=== PATIENT | female | born 1970 | race Caucasian/White ===

== ENCOUNTER 2020-03-06 11:42 | Emergency (ER) | payer BC ==
[~2020-03-06] VITALS: Ht 154.9 cm; Wt 66.2 kg
[2020-03-06 11:54] VITALS: Ht 154.9 cm; Wt 66.2 kg
[2020-03-06 12:23] LABS: BASOPHIL % 0.9 % (0-2); PLATELET COUNT 331 x10^3mcL (130-400)
[2020-03-06 12:47] LABS: ALBUMIN 3.8 g/dL (3.4-5.0); ALKALINE PHOSPHATASE 62 U/L (46-116); ALT/SGPT 57 U/L (14-59); AST/SGOT 36 U/L (15-37); BILIRUBIN TOTAL 0.4 mg/dL (0.20-1.00); CALCIUM 8.3 mg/dL (8.5-10.1); CARBON DIOXIDE 33.3 mmol/L (21-32); CHLORIDE SERUM 98 mmol/L (98-107); GFR1 > 60 mL/min; GLUCOSE SERUM 96 mg/dL (74-106); SODIUM SERUM 138 mmol/L (136-145); TOTAL PROTEIN, SERUM 7.1 g/dL (6.4-8.2)
[2020-03-06 12:51] LABS: POTASSIUM SERUM 2.8 mmol/L (3.5-5.1)
[2020-03-06 15:31] VITALS: BP 132/78
== END 2020-03-06 15:31 | disposition home or self-care (01) ==
LOC: ED 11:42
PROVIDERS: Emergency Medicine
DX: R53.1 Weakness (principal); R42 Dizziness and giddiness; E87.6 Hypokalemia; I10 Essential (primary) hypertension
CPT/HCPCS: J3480; J7030